=== PATIENT | female | born 1975 | race Caucasian/White ===

== ENCOUNTER → 2016-05-18 | Outpatient (CLI) | payer OTHER ==
--- NOTE | 2016-05-18 14:00 | MRI ---
EXAM DESCRIPTION: MRI right foot CLINICAL HISTORY: Toe pain. Sesamoiditis. COMPARISON: None. TECHNIQUE: Multi planar, multi sequence MRI evaluation of the right foot FINDINGS: Normal appearance of the medial and lateral sesamoids. No osteochondral lesion metatarsophalangeal joint of the great toe. Minimal joint fluid without synovitis or intra-articular body No osteochondral lesion 2nd through 5th metatarsophalangeal joints or interphalangeal. A pin traverses the interphalangeal joints of the 2nd toe. No advanced interphalangeal osteoarthritis No tenosynovitis. Intrinsic muscles of the foot are normal IMPRESSION: Postsurgical change 2nd toe No MRI evidence of sesamoiditis Electronically signed by: Eagle Garcia MD 05/18/2016 13:57
== END ==
LOC: MRI 10:58
PROVIDERS: ATTEND Family Medicine
DX: M84.9 Disorder of continuity of bone, unspecified (principal); Z98.890 Other specified postprocedural states

== ENCOUNTER → 2016-07-29 | Outpatient (CLI) | payer OTHER ==
--- NOTE | 2016-07-30 07:10 | MRI ---
EXAM DESCRIPTION: Cervical Spine CLINICAL HISTORY: 41 years,Female,RADICULOPATHY COMPARISON: None TECHNIQUE: MRI performed multiple sequences of the cervical spine. FINDINGS: The signal in the cervical vertebral bodies are unremarkable. The cervical cord is normal signal and morphology. Surrounding soft tissues unremarkable. Dense and arch of C1: unremarkable. C2-3: There is minimal loss of disc height. There is mild annular disc bulge. Facets are unremarkable for age. No neural foraminal stenosis. No spinal canal stenosis. C3-4: There is mild loss of disc height. There is mild annular disc osteophyte complex. Facets are mildly hypertrophic. No neural foraminal stenosis. No spinal canal stenosis. C4-5: There is moderate loss of disc height. There is moderate disc ossify complex with uncovertebral osteophytes up to 4 mm in thickness on the right. Facets are mild hypertrophy. Mild to moderate bilateral neural from stenosis. No spinal canal stenosis. C5-6: There is loss of disc at. There is mild to moderate disc ossify complex. Facets are mildly hypertrophic. Mild left neural foraminal stenosis. No spinal canal stenosis. C6-7: There is moderate loss of disc height. There is disc ossify complex with uncovertebral osteophytes with the lateral measuring 3 mm in thickness. Facets are mildly hypertrophic. Minimal if any bilateral neural foraminal stenosis. No spinal canal stenosis. C7-T1:There is no significant loss of disc height. There is no disc bulge. Facets are mild hypertrophy. No neural foraminal stenosis. No spinal canal stenosis. IMPRESSION: There is some neuroforaminal stenosis worse and mild to moderate bilaterally at C4-5 and mild on the left at C5-6 and minimal if any bilateral at C6-7 due to disc ossify complexes with uncovertebral osteophytes. No spinal canal stenosis. C2-3 and C3-4 demonstrate only mild disc ossify complexes. And entire cervical spine demonstrates mostly mild facet arthropathy. Electronically signed by: Flaqutio Bernstein MD 07/30/2016 7:09 AM CDT
--- NOTE | 2016-07-30 08:59 | MRI ---
EXAM DESCRIPTION: MRI pelvis without contrast CLINICAL HISTORY: Pelvic pain. Radiculopathy COMPARISON: None. TECHNIQUE: Multiplanar, multisequence MR images of the pelvis FINDINGS: Patient has had a hysterectomy and apparently a right oophorectomy. Right ovary not seen. Abnormal left adnexa. There is a unilocular cystic lesion which is about 2.4 cm in greatest dimension. There are couple of other tiny follicles. Another rounded structure within the ovary/adnexa measures about 2.5 x 2.4 x 2.4 cm demonstrating heterogeneously primarily low signal on T2-weighted images and heterogeneous primarily high signal on T1-weighted images with some intermediate signal. The quality of the low signal is different than fat on T2 fat-saturated images and slightly different on STIR images. This may be blood degradation products. Possibility of fat No pelvic soft tissue mass lesion or adenopathy otherwise. No free fluid. Mildly thickened urinary bladder wall without filling defect. This is apparently mild muscular hypertrophy. No focal bony lesion. No osteochondral lesion of the hips. Physiologic joint fluid. No suspicion of labral tear No tendon or muscle abnormality around the pelvis No mass lesion or signal abnormality along the course of the lumbosacral plexus and proximal sciatic nerves included in the [id number] IMPRESSION: Abnormal left adnexa/ovary with a unilocular cyst, and a couple of tiny follicles. Another component in the ovary which is probably related to hemorrhage. Possibility of fat/dermoid although the imaging characteristics are different than the other fat in the pelvis. Recommend endovaginal pelvic sonogram characterization No diagnostic abnormality of the lumbosacral plexus and proximal sciatic nerves included in the [id number] Electronically signed by: Eagle Garcia MD 07/30/2016 8:58 AM CDT
== END | disposition home or self-care (01) ==
LOC: MRI 08:28
PROVIDERS: ATTEND Family Medicine
DX: M50.122 Cervical disc disorder at C5-C6 level with radiculopathy (principal); M51.16 Intervertebral disc disorders with radiculopathy, lumbar region; M79.0 Rheumatism, unspecified; M84.9 Disorder of continuity of bone, unspecified; N83.292 Other ovarian cyst, left side

== ENCOUNTER 2017-05-06 05:46 | Day surgery (SDC) | payer OTHER ==
--- NOTE | 2017-05-02 13:33 | HP ---
CHIEF COMPLAINT: Bilateral hand numbness. HISTORY OF PRESENT ILLNESS: Pauline is a 41-year-old female with a history both pain and numbness in the hands. She has had this going on for about two years and says that it is starting to wake her up on a nightly basis. She denies any radiation of pain and denies any neurologic symptoms proximal to the wrist except for occasional numbness on the ulnar border of the left hand. She has had this on a rare and mild occasion. She says the numbness in the other part of her hand causes her more dysfunction. She has had an EMG, but the EMG showed more of a cervical radiculopathy. From a clinical standpoint, it does appear as though she has carpal tunnel syndrome bilaterally. Because of that, she has been using braces and utilizing anti-inflammatories, but those are no longer given her relief. We have discussed options which would include injection versus surgical intervention. Because of the failure of conservative measures, she has requested operative intervention. After discussing the risks , benefits and alternatives to operative therapy, the patient has given informed consent. PAST SURGICAL HISTORY: 1. Cholecystectomy. 2. Hysterectomy. 3. Nasal septoplasty. 4. Right and left foot surgeries. MEDICATIONS: 1. Adderall. 2. Nifedipine. 3. Singulair. 4. Biotin. 5. Xyzal. 6. Potassium chloride. 7. Trintellix. 8. Sulfasalazine. ALLERGIES: CODEINE, HYDROCODONE, BETADINE, HIBICLENS. CODE STATUS: Full code. IMMUNIZATIONS: Up to date. SOCIAL HISTORY: The patient does not drink, smoke or use any illicit drugs. FAMILY HISTORY: None pertinent to today's complaint. REVIEW OF SYSTEMS: Negative except as indicated in the History of Present Illness. PHYSICAL EXAMINATION: VITAL SIGNS: Blood pressure 149/104. Pulse 93. Height 5'4". Weight 170. MENTAL STATUS: The patient is awake, alert, and is able to give a good history and participate in the physical. The patient is oriented to person, place and time. SKIN: Normal tone and turgor. MUSCULOSKELETAL: She has positive carpal compression test and positive Phalen' s tests bilaterally. She has intact sensation at this time at rest. Both hands are warm and well perfused. She does not appear to have any significant thenar or hypothenar atrophy. She has slightly positive Tinel's and does have positive Tinel's on the left cubital tunnel. ASSESSMENT: 1. Carpal tunnel syndrome. PLAN: Because of the clinical positivity of her carpal tunnel tests and despite her EMG, I think we are dealing more with a carpal tunnel syndrome rather than cervical radiculopathy. To that end, she has elected to undergo carpal tunnel release. We have discussed the risks, benefits, and alternatives to that and the patient has given informed consent. #[id number] [facility]
[2017-05-06] MEDS ORDERED: LACTATED RINGERS 1,000 ML ONE (05:49)
[2017-05-06] MEDS ORDERED: SODIUM CHL 0.9% 100ML MINI-BAG 100 ML IVPB ONE (05:49)
[2017-05-06] MEDS ORDERED: ceFAZolin SODIUM 1 GM VIAL ONE (05:49)
[2017-05-06] MEDS ORDERED: LIDOCAINE 1% 50 ML VIAL INJ ONE (06:46)
[2017-05-06] MEDS ORDERED: BUPIVACAINE 0.25% INJ 30 ML VIAL INJ ONE (06:46)
[2017-05-06] MEDS ORDERED: PROPOFOL 200 MG/20 ML VIAL IV ONE (07:00)
[2017-05-06] MEDS: VANCOMYCIN HCL INJ 1,000 MG VIAL IVPB ONE ×2 (07:17→07:20)
[2017-05-06] MEDS: ceFAZolin SODIUM 1 GM VIAL ONE ×2 (07:17→07:20)
[2017-05-06 07:59] VITALS: TEMP 98
[2017-05-06 08:27] VITALS: BP 127/84; O2SAT 100
--- NOTE | 2017-05-06 09:18 | OP ---
DATE OF PROCEDURE: 05/06/17 PREOPERATIVE DIAGNOSIS: 1. Carpal tunnel syndrome. POSTOPERATIVE DIAGNOSIS: 1. Carpal tunnel syndrome. PROCEDURE: 1. Carpal tunnel release. SURGEON: Isaiah Ibrahim MD. PHLEBOTOMIST PRN: Richie Haines CST, SA-C. ANESTHESIA: Local with sedation. COMPLICATIONS: None. FINDINGS: Thickening of the transverse carpal ligament. Otherwise, normal anatomy. INDICATION: Pauline has a history of both pain in the wrist as well as numbness. She has had symptoms going on for about 2 years and they have been getting progressively worse. Because of the ongoing symptoms, she has requested operative intervention. After discussing the risks, benefits and alternatives to operative therapy, the patient has given informed consent for carpal tunnel release. PROCEDURE: The patient was brought to the Operating Room and placed in the supine position. Sedation was administered and local anesthetic was injected into the operative area under sterile conditions. After the injection of anesthetic, the arm was sterilely prepped and draped. A longitudinal incision was made directly overlying the transverse carpal ligament and blunt dissection was carried down to the ligament. The transverse carpal ligament was sharply transected along its length and a [place] elevator was used to ensure complete release of the ligament. Once release had been confirmed, the wound was thoroughly irrigated and the wound was closed with Nylon suture. A sterile dressing was placed and the patient was taken to the Day Surgery Unit. POSTOPERATIVE INSTRUCTIONS: She will be utilizing the digits for range of motion and will followup with us in approximately one week. #[id number] [facility]
== END 2017-05-06 08:05 | disposition home or self-care (01) ==
LOC: AMB 05:46
PROVIDERS: ATTEND Orthopaedic Surgery
DX: G56.01 Carpal tunnel syndrome, right upper limb (principal); J45.909 Unspecified asthma, uncomplicated; Z88.8 Allergy status to other drugs, medicaments and biological substances; Z79.899 Other long term (current) drug therapy

== ENCOUNTER 2017-05-20 05:28 | Day surgery (SDC) | payer OTHER ==
[2017-05-20] MEDS ORDERED: LACTATED RINGERS 1,000 ML ONE (05:56)
[2017-05-20] MEDS ORDERED: ceFAZolin SODIUM 1 GM VIAL ONE ×2 (05:56→06:49)
[2017-05-20] MEDS ORDERED: SODIUM CHL 0.9% 100ML MINI-BAG 100 ML IVPB ONE (05:56)
[2017-05-20] MEDS ORDERED: BUPIVACAINE 0.25% INJ 30 ML VIAL INJ ONE (06:49)
[2017-05-20] MEDS ORDERED: VANCOMYCIN HCL INJ 1,000 MG VIAL IVPB ONE (06:49)
[2017-05-20] MEDS ORDERED: LIDOCAINE 1% 50 ML VIAL INJ ONE (06:49)
[2017-05-20] MEDS ORDERED: PROPOFOL 200 MG/20 ML VIAL IV ONE (07:00)
[2017-05-20] MEDS ORDERED: LIDOCAINE 1% 10 ML VIAL INJ ONE (07:00)
[2017-05-20 07:07] VITALS: O2SAT 97
[2017-05-20 08:51] VITALS: BP 128/72; TEMP 97.6
--- NOTE | 2017-05-20 10:59 | OP ---
DATE OF PROCEDURE: 05/20/17 PREOPERATIVE DIAGNOSIS: 1. Carpal tunnel syndrome, left . POSTOPERATIVE DIAGNOSIS: 1. Carpal tunnel syndrome, left. PROCEDURE: 1. Carpal tunnel release. SURGEON: Isaiah Ibrahim MD. BREAKER HAND: Richie Haines CST, SA-C. ANESTHESIA: Local with sedation. COMPLICATIONS: None. FINDINGS: Thickened transverse carpal ligament with narrowing of the median nerve across the carpal tunnel. INDICATION: Ms. Salvador has a long history of pain as well as sensory deficits. She requested operative intervention secondary to failure of conservative measures. After discussing the risks, benefits and alternatives to operative therapy, the patient has given informed consent for carpal tunnel release. PROCEDURE: The patient was brought to the Operating Room and placed in the supine position. Sedation was administered and local anesthetic was injected into the operative area under sterile conditions. After the injection of anesthetic, the arm was sterilely prepped and draped. A longitudinal incision was made directly overlying the transverse carpal ligament and blunt dissection was carried down to the ligament. The transverse carpal ligament was sharply transected along its length and a [place] elevator was used to ensure complete release of the ligament. Once release had been confirmed, the wound was thoroughly irrigated and the wound was closed with Nylon suture. A sterile dressing was placed and the patient was taken to the Day Surgery Unit. POSTOPERATIVE INSTRUCTIONS: The patient has been encouraged to do range of motion of the digits and will followup with us in two days. #[id number] [facility]
== END 2017-05-20 08:40 | disposition home or self-care (01) ==
LOC: AMB 05:28
PROVIDERS: ATTEND Orthopaedic Surgery
DX: G56.02 Carpal tunnel syndrome, left upper limb (principal); I10 Essential (primary) hypertension; J45.909 Unspecified asthma, uncomplicated; Z88.8 Allergy status to other drugs, medicaments and biological substances; Z79.899 Other long term (current) drug therapy
CPT/HCPCS: 01810; 64721; 87070; J0690; J3370; J3490; J7050; J7120

== ENCOUNTER 2017-07-27 05:48 | Day surgery (SDC) | payer OTHER ==
--- NOTE | 2017-07-22 09:11 | HP ---
CHIEF COMPLAINT: Left hand numbness and aching. HISTORY OF PRESENT ILLNESS: Pauline is a 41-year-old female with a history of pain and numbness on the ulnar border of the hand. She has had this going on for several years and it has been getting progressively worse. She has had EMG evidence of ulnar nerve dysfunction. Because of the ongoing symptoms, she has requested operative intervention. After discussing the risks, benefits and alternatives to that, the patient has given informed consent for ulnar nerve transposition. PAST SURGICAL HISTORY: 1. Cholecystectomy. 2. Hysterectomy. 3. Septoplasty. 4. Bilateral foot surgery. 5. Bilateral carpal tunnel release. MEDICATIONS: 1. Adderall. 2. Nifedipine. 3. Singulair. 4. Biotin. 5. Xyzal. 6. Potassium. 7. Trintellix. 8. Sulfasalazine. ALLERGIES: CODEINE, HYDROCODONE, BETADINE, HIBICLENS. CODE STATUS: Full code. IMMUNIZATIONS: Up to date. SOCIAL HISTORY: The patient does not drink, smoke or use any illicit drugs. FAMILY HISTORY: None pertinent to today's complaint. REVIEW OF SYSTEMS: Negative except as indicated in the History of Present Illness. PHYSICAL EXAMINATION: VITAL SIGNS: Blood pressure 125/75. Pulse 88. Height 5'4". Weight 170 pounds. MENTAL STATUS: The patient is awake, alert, and is able to give a good history and participate in the physical. The patient is oriented to person, place and time. SKIN: Normal tone and turgor. HEENT: Normocephalic, atraumatic. Pupils equal, round and reactive. Mucosal membranes are moist. NECK: Normal range of motion. No thyromegaly, no lymphadenopathy. CHEST: Normal respiratory excursion. CARDIAC: Regular rate and rhythm. No murmurs, rubs or gallops. MUSCULOSKELETAL: She has obvious hypothenar atrophy relative to the right side. She has weakness in finger abduction. She has subjective numbness at rest. She has positive Tinel's at the elbow. The entire extremity is warm and well perfused. She maintains full range of motion in the shoulder, elbow, wrist and digits. ASSESSMENT: 1. Ulnar nerve compression. PLAN: The plan at this point is for ulnar nerve transposition. We have discussed the risks, benefits, and alternatives to that and the patient has given informed consent. #[id number] [facility]
[2017-07-27] MEDS ORDERED: SODIUM CHL 0.9% 100ML MINI-BAG 100 ML IVPB ONE (06:11)
[2017-07-27] MEDS ORDERED: fentaNYL CITRATE INJ 50 MCG/ML AMP ONE (06:18)
[2017-07-27] MEDS ORDERED: LIDOCAINE 2 % GEL 5 ML TUBE TOP ONE (06:18)
[2017-07-27] MEDS ORDERED: LIDOCAINE 1% W/ EPINEPHRINE 20 ML VIAL INJ ONE (06:46)
[2017-07-27] MEDS ORDERED: SODIUM CHLORIDE 0.9% 250ML 250 ML ONE (06:49)
[2017-07-27] MEDS: VANCOMYCIN HCL INJ 1,000 MG VIAL IVPB ONE ×2 (06:55→08:50)
[2017-07-27] MEDS: ceFAZolin SODIUM 1 GM VIAL ONE ×2 (07:15→08:50)
[2017-07-27] MEDS: BUPIVACAINE 0.25% W/EPI 50 ML VIAL INJ ONE (07:35)
[2017-07-27] MEDS ORDERED: ACETAMINOPHEN IV 1000MG 100 ML ONE ×2 (08:52→08:53)
[2017-07-27] MEDS ORDERED: PROPOFOL 200 MG/20 ML VIAL IV ONE (10:00)
[2017-07-27] MEDS ORDERED: ONDANSETRON INJ 4 MG/2 ML VIAL IV ONE (10:00)
[2017-07-27] MEDS ORDERED: LIDOCAINE 1% 10 ML VIAL INJ ONE (10:00)
[2017-07-27] MEDS ORDERED: DEXAMETHASONE INJ 10 MG/ML VIAL IV ONE (10:00)
[2017-07-27 10:03] VITALS: TEMP 97.5
[2017-07-27] MEDS: MORPHINE SULFATE INJ 10 MG/ML VIAL ONE (10:10)
[2017-07-27] MEDS: LACTATED RINGERS 1,000 ML ONE (10:36)
[2017-07-27] MEDS: ONDANSETRON ODT 8 MG TAB ONE (10:45)
--- NOTE | 2017-07-27 10:47 | OP ---
DATE OF PROCEDURE: 07/27/17 PREOPERATIVE DIAGNOSIS: 1. Ulnar nerve entrapment. POSTOPERATIVE DIAGNOSIS: 1. Ulnar nerve entrapment. PROCEDURE: 1. Ulnar nerve transposition. SURGEON: Isaiah Ibrahim MD. WASHHOUSE WORKER: Richie Haines CST, SA-C. ANESTHESIA: General. COMPLICATIONS: None. FINDINGS: Subluxation of the ulnar nerve with flattening across the cubital tunnel. INDICATION: Ms. Slavador has a history of both pain and paresthesias in the ulnar aspect of the arm. She has had this going on for quite a while and has developed some evidence of atrophy. Because of the duration of symptoms and the development of atrophy, we did talk about the risks, benefits and alternatives to operative therapy. After discussing those, informed consent was obtained. PROCEDURE: The patient was brought to the Operating Room and placed in the supine position. General anesthesia was induced and the patient's arm was sterilely prepped and draped. An incision was made midway between the olecranon and the medial epicondyle. Dissection was carried down to the fascial layer and the nerve was identified proximally. Vessel loop was passed around the nerve. Following passing of vessel loop, it was freed from proximal to distal. Across the cubital tunnel, it was noted that there was subluxation of the median nerve and pressure directly over the medial epicondyle. Once the nerve was fully freed, the tissues overlying the medial epicondyle were elevated. The wound was thoroughly irrigated and the median nerve was held in a protected position while the fascial layer was sutured to the medial epicondyle. After confirmation of the nerve being free of the sutured area, the wound was again irrigated and closed with combination of running and interrupted subcuticular stitches. Sterile dressings were placed. The patient was placed in a sling with a posterior splint, awoken from anesthesia and taken to Recovery. POSTOPERATIVE INSTRUCTIONS: The patient has been encouraged to do range of motion of the digits. She will keep the hand elevated and will followup with us in two days. #[id number] [facility]ENTER[facility]aciel[facility]
[2017-07-27] MEDS: IBUPROFEN 200 MG TAB ONE (11:00)
[2017-07-27] MEDS: traMADol HCL 50 MG TAB ONE (11:00)
[2017-07-27 12:17] VITALS: BP 138/80; O2SAT 97
== END 2017-07-27 11:40 | disposition home or self-care (01) ==
LOC: AMB 05:48
PROVIDERS: ATTEND Orthopaedic Surgery
DX: G56.22 Lesion of ulnar nerve, left upper limb (principal); M06.9 Rheumatoid arthritis, unspecified; Z88.5 Allergy status to narcotic agent; Z88.8 Allergy status to other drugs, medicaments and biological substances; Z79.899 Other long term (current) drug therapy
CPT/HCPCS: 01710; 64718; 87070; J0690; J1100; J2270; J2405; J3010; J3370; J3490; J7050; J7120

== ENCOUNTER → 2017-12-27 | Outpatient (CLI) | payer OTHER ==
--- NOTE | 2017-12-27 15:48 | MRI ---
EXAM DESCRIPTION: Shoulder,Left: Magnetic Resonance Imaging. CLINICAL HISTORY: LEFT SHOULDER PAIN COMPARISON: None. TECHNIQUE: Multiplanar, high-field MRI, multiple sequences, without contrast, left shoulder was in internal rotation during the scan. FINDINGS: Minimal fluid signal in the bursal surface of the posterior musculotendinous junction of the supraspinatus. Abutting the confluence with the infraspinatus tendon. Minimal fluid in the subacromial-subdeltoid bursa. Intermediate signal in the distal infraspinatus tendon. Normal signal in the remaining tendons of the rotator cuff. No muscle atrophy. No significant lesions in the humeral head. Small subchondral cysts on the opposing facets of the AC joint. Minimal mass effect on the superior distal supraspinatus muscle. Minimal downsloping of the lateral acromion. Type II curvature of the lateral acromion. Coracoid ligaments are intact. Minimal fluid in the subcoracoid bursa. Subchondral edema in the posterior superior aspect of the glenoid labrum. Minimal fluid signal in the superior labrum abutting the posterior bicipital labral anchor. Question of a subtle labral foramen anterior and superior. Superior glenohumeral ligament not well seen. Long head biceps tendon within the bicipital groove.. IMPRESSION: 1. Tendinitis at the posterior aspect of the bursal surface of the musculotendinous junction of the supraspinatus, abutting the confluence with the infraspinatus. Degeneration of the distal infraspinatus tendon. No muscle atrophy. Minimal edema in the subacromial-subdeltoid bursa. 2. Minimal subcoracoid bursitis. Minimal to moderate arthrosis of the AC joint. Inferior joint capsule is exhibiting minimal mass effect on the distal muscle fibers of the supraspinatus. 3. Small osteochondral lesion in the posterior aspect of the superior glenoid. Small focal tear in the superior labrum abutting the posterior bicipital labral anchor. Possible sublabral foramen. Superior glenohumeral ligament not well seen. Consider MR arthrography of the left shoulder for better definition of the glenohumeral joint and the glenoid labrum. Electronically signed by: Richie Masterson MD 12/27/2017 3:47 PM CDT
--- NOTE | 2017-12-28 13:38 | MAM ---
EXAM DESCRIPTION: 3D Screening BILATERAL : Digital Mammography. CLINICAL HISTORY: 42 years Female SCREEN . No complaints. No personal history or family history of breast cancer. Childbirth. Hysterectomy. No HRT. Lifetime risk of developing breast cancer (Tyrer-Cuzick model) is 9.8 %. COMPARISON: 2-D digital screening bilateral study 12/19/2008.. No prior reports available. TECHNIQUE: Bilateral CC and MLO projection full-field images, Digital tomosynthesis mammographic technique. Bilateral digital 2-D full-field MLO images. CAD not utilized. FINDINGS: The breast parenchymal density pattern is: Heterogeneously dense breast tissue, which may obscure small masses. No skin thickening or nipple retraction. Focal asymmetry in the midline into the third of the left breast at the 600 clock position approximately 8 cm from the nipple. Not associated with calcifications. Bilateral axillary lymph nodes. No new focal, stellate mass or density, focal asymmetry , and no suspicious microcalcifications right breast are Stable mammograms compared to prior study. IMPRESSION: BI-RADS CATEGORY: 0 - INCOMPLETE- Need additional imaging evaluation. FOLLOW-UP: Recall for additional imaging: Digital tomosynthesis left breast full-field imaging and spot compression. Targeted left breast ultrasound if indicated by diagnostic images.. Written communication concerning the IMPRESSION and Follow-up, will be mailed to the patient and referring health care provider. Electronically signed by: Richie Masterson MD 12/28/2017 1:36 PM CDT
== END ==
LOC: MRI 11:58
PROVIDERS: ATTEND Family Medicine
DX: Z12.31 Encounter for screening mammogram for malignant neoplasm of breast (principal); M75.52 Bursitis of left shoulder; M75.82 Other shoulder lesions, left shoulder; M25.512 Pain in left shoulder

== ENCOUNTER → 2018-01-05 | Outpatient (CLI) | payer OTHER ==
--- NOTE | 2018-01-05 13:47 | US ---
EXAM DESCRIPTION: Pelvic,Non-OB: Ultrasound. CLINICAL HISTORY: OVARIAN CYST. Previous hysterectomy and right oophorectomy. COMPARISON: MRI pelvis 07/29/2016. Diagnostic digital breast tomosynthesis left and targeted left breast ultrasound today. TECHNIQUE: Transcutaneous scanning through the urine filled bladder. Endovaginal scanning. Small-scale and Doppler modes. FINDINGS: Uterus surgically removed. Cul-de-sac contains no fluid. Right ovary surgically removed. Left ovary 4.2 x 2.9 x 2.7 cm. Normal Vascularity Doppler. 2 cysts, anechoic. One cyst measures 2.1 x 1.5 x 2.0 cm. Largest cyst measures 3.4 x 3.1 x 2.5 cm. Well-defined campa with no calcification or vascularity. No adnexal mass or free fluid. IMPRESSION: Left ovary is enlarged with 2 cysts, maximum diameter 3.4 cm and 2.0 cm. The cysts appear simple. Solid mass not seen. One year ultrasound follow-up imaging recommended per [facility] Best Practice recommendations for simple cysts and patient greater than one year postmenopause. Please see below.* *Recommendations for f/u of ovarian anechoic simple cyst, simple cyst with single thin <3 mm septation, or focal calcification in wall of cyst (1): Pre-menopause: <= 5 cm No follow-up imaging recommended >5 cm - <=7 cm US f/u annually >7 cm Consider MR w/IVC or surgical evaluation Post-menopause (>=1 year from last menstrual period): <=3 cm No follow-up imaging recommended >3 cm - <=7 cm US f/u annually >7 cm Consider MR w/IVC or surgical evaluation (1) Recommendations based on 2010 SRU Consensus Conference Statement on the Management of Asymptomatic Ovarian and Other Adnexal Cysts Imaged at US: Radiology. 2009;256(3):317-72 Electronically signed by: Richie Masterson MD 01/05/2018 1:46 PM CDT
--- NOTE | 2018-01-05 13:53 | US ---
EXAM DESCRIPTION: Breast,Left: Ultrasound CLINICAL HISTORY: 42 yearsFemaleABNORMAL MAMMO COMPARISON: Digital diagnostic mammogram left breast today. Bilateral screening digital breast tomosynthesis 12/27/2017. TECHNIQUE: Transcutaneous scanning of the left breast utilizing dumont-scale and Doppler modes. Scanning performed by the victim witness administrator and observation by Dr. Masterson. FINDINGS: Heterogeneous fibroglandular and fatty echotexture mixed. No distinct solid mass or cyst. No parenchymal edema or large calcifications. No overlying skin changes. No abnormal vascularity. IMPRESSION: 1. Bi-Rads Category 2: Benign. 2. Please refer to diagnostic left breast digital tomosynthesis and report on this visit. The FINDINGS and the FOLLOW-UP plan were reviewed in person with the patient after the examination. Written communication explaining the IMPRESSION and FOLLOW-UP will be mailed to the patient and referring care provider. Electronically signed by: Richie Masterson MD 01/05/2018 1:51 PM CDT
--- NOTE | 2018-01-05 14:21 | MAM ---
EXAM DESCRIPTION: 3D Diagnostic, Left: Digital Mammography CLINICAL HISTORY: 42 yearsFemaleABNORMAL MAMMOGRAM . Focal asymmetry middle third left breast.. COMPARISON: Bilateral screening digital breast tomosynthesis 01/05/2018.. Ultrasound left breast following this examination.. TECHNIQUE: Left LM projection full-field images, digital mammographic tomosynthesis technique. Spot magnification digital left CC and MLO projections. CAD not utilized. FINDINGS: Left breast parenchymal density pattern is: Heterogeneously dense breast tissue, which may obscure small masses. No skin thickening or nipple retraction densest fibroglandular elements within the mid third of the breast. No new focal, stellate mass or density, focal asymmetry , and no suspicious microcalcifications in the region of interest. ULTRASOUND: Scanning the middle third of the left breast with emphasis on the 1200 clock position, 7 cm from the nipple. Heterogeneous fibroglandular and fatty echotexture mixed. No distinct solid mass or cyst. No parenchymal edema or large calcifications. No overlying skin changes. No abnormal vascularity. IMPRESSION: Benign exam. BIRAD CATEGORY: 2 BENIGN FINDINGS. RECOMMENDATIONS: FOLLOW UP: Return to routine digital bilateral screening, one year interval from December 2017. Written communication explaining the IMPRESSION and follow-up, will be mailed to the patient and referring health care provider. According to the [employer], yearly mammograms are recommended starting at age 40 and continuing as long as a woman is in good health. Any breast change noted on a breast self-exam should be reported promptly to the patient's healthcare provider. Breast MRI is recommended for women with an approximately 20-25% or greater lifetime risk of breast cancer, including women with a strong family history of breast or ovarian cancer and women who have been treated for Hodgkin's disease. A negative mammographic report should not delay tissue diagnosis in patients with significant clinical history or physical findings. Extremely dense breast tissue limits the sensitivity of digital mammography. Electronically signed by: Richie Masterson MD 01/05/2018 2:19 PM CDT
== END ==
LOC: MAMMO 08:30
PROVIDERS: ATTEND Family Medicine
DX: R92.8 Other abnormal and inconclusive findings on diagnostic imaging of breast (principal); N83.202 Unspecified ovarian cyst, left side
CPT/HCPCS: 76641; 76856; 77065; G0279

== ENCOUNTER 2018-01-31 06:16 | Day surgery (SDC) | payer OTHER ==
--- NOTE | 2018-01-25 08:28 | HP ---
CHIEF COMPLAINT: Left shoulder pain. HISTORY OF PRESENT ILLNESS: Pauline is a 41-year-old female with a history of pain in the shoulder that she describes as being both on the lateral and superior aspects. She has had this pain for several months and has had injections in the past. She has had subacromial injection which has given partial relief. She has attempted physical therapy, however has failed to get full relief with either physical therapy or injection. She says the pain is on a very frequent basis, does not radiate and she no longer has symptoms associated with her carpal tunnel syndrome or cubital tunnel syndrome. PAST SURGICAL HISTORY: 1. Cholecystectomy. 2. Hysterectomy. 3. Septoplasty. 4. Bilateral foot surgery. 5. Bilateral carpal tunnel release. 6. Ulnar nerve transposition. MEDICATIONS: 1. Adderall. 2. Nifedipine. 3. Singulair. 4. Biotin. 5. Xyzal. 6. Potassium. 7. Trintellix. 8. Sulfasalazine. ALLERGIES: CODEINE, HYDROCODONE, BETADINE, HIBICLENS. CODE STATUS: Full code. IMMUNIZATIONS: Up to date. FAMILY HISTORY: None pertinent to today's complaint. SOCIAL HISTORY: The patient does not drink, smoke or use any illicit drugs. REVIEW OF SYSTEMS: Negative except as indicated in the History of Present Illness. PHYSICAL EXAMINATION: VITAL SIGNS: Blood pressure 120/70. Pulse 81. Height 5'4". Weight 170 pounds. MENTAL STATUS: The patient is awake, alert, and is able to give a good history and participate in the physical. The patient is oriented to person, place and time. SKIN: Normal tone and turgor. MUSCULOSKELETAL: She has full abduction of the shoulder, but it is very tender beyond about 90 degrees. She has pretty severe pain with cross-chest adduction. She has full jewelry bench molder strength. Sensation is intact. The extremity is warm and well perfused. She has pain with internal and external rotation during forward flexion. She has internal rotation to about L2. She has severe tenderness over the acromioclavicular joint and moderate tenderness in the subacromial space. IMAGING: X-rays show no acute bony abnormality. MRI does demonstrate tendinosis of the rotator cuff, however, there does seem to be arthritic changes at the acromioclavicular joint with a mass effect from the undersurface osteophytes on the rotator cuff. ASSESSMENT: 1. Impingement syndrome. PLAN: I did a local injection at the acromioclavicular joint. This gave her excellent relief for several days. It was complete relief with just that. She has had physical therapy as well as previous steroid injection. Given the fact that we were able to localize her pain and her failure of conservative measures , she has requested operative intervention. We have discussed the risks, benefits, and alternatives to subacromial decompression and distal clavicle resection, she has given informed consent for that and we will proceed with that. #[id number] [facility]
[~2018-01-31 06:16] MED LIST: LACTATED RINGERS 1,000 ML ONE; SODIUM CHL 0.9% 100ML MINI-BAG 100 ML IVPB ONE; ceFAZolin SODIUM 1 GM VIAL ONE
[2018-01-31] MEDS ORDERED: ACETAMINOPHEN IV 1000MG 100 ML ONE (06:29)
[2018-01-31] MEDS ORDERED: LACTATED RINGERS 1,000 ML BAG IV ONE (06:30)
[2018-01-31] MEDS ORDERED: ROCURONIUM BROMIDE 10 MG/ML VIAL ONE (06:30)
[2018-01-31] MEDS ORDERED: MIDAZOLAM INJ 5 MG/5 ML VIAL ONE (06:30)
[2018-01-31] MEDS ORDERED: fentaNYL CITRATE INJ 50 MCG/ML AMP ONE (06:30)
[2018-01-31] MEDS ORDERED: BUPIVACAINE 0.5% 30 ML VIAL INJ ONE (06:56)
[2018-01-31] MEDS ORDERED: BUPIVACAINE LIPOSOME 13.3 MG/ML VIAL INJ ONE (06:56)
[2018-01-31] MEDS: ceFAZolin SODIUM 1 GM VIAL ONE ×2 (07:46→07:55)
[2018-01-31] MEDS: VANCOMYCIN HCL INJ 1,000 MG VIAL IVPB ONE ×2 (07:46→07:55)
[2018-01-31] MEDS ORDERED: SUGAMMADEX SODIUM 200 MG/2 ML VIAL IV ONE (07:55)
[2018-01-31 09:05] VITALS: TEMP 97.2
[2018-01-31] MEDS ORDERED: HYDROmorphone HCL INJ 2 MG/ML VIAL ONE (09:41)
[2018-01-31] MEDS ORDERED: LIDOCAINE 1% 10 ML VIAL INJ ONE (10:00)
[2018-01-31] MEDS ORDERED: raNITIdine HCL INJ 25 MG/ML VIAL IV ONE (10:00)
[2018-01-31] MEDS ORDERED: PROPOFOL 200 MG/20 ML VIAL IV ONE (10:00)
[2018-01-31] MEDS ORDERED: diphenhydrAMINE HCL 50 MG/ML VIAL IV ONE (10:00)
[2018-01-31] MEDS ORDERED: ePHEDrine SULF 50 MG/ML IV ONE (10:00)
[2018-01-31] MEDS ORDERED: METOCLOPRAMIDE HCL INJ 10 MG/2 ML VIAL IV ONE (10:00)
[2018-01-31] MEDS ORDERED: DEXAMETHASONE INJ 10 MG/ML VIAL IV ONE (10:00)
[2018-01-31 10:59] VITALS: BP 129/85; O2SAT 98
--- NOTE | 2018-02-01 14:23 | OP ---
DATE OF PROCEDURE: 01/31/18 PREOPERATIVE DIAGNOSIS: 1. Impingement syndrome. POSTOPERATIVE DIAGNOSIS: 1. Impingement syndrome. PROCEDURE: 1. Subacromial decompression. 2. Distal clavicle resection. SURGEON: Isaiah Ibrahim MD. HEEL SEAT FLAP STAPLER: Richie Haines CST, SA-C. ANESTHESIA: General anesthesia. COMPLICATIONS: None. FINDINGS: 1. Hypertrophic bursitis. 2. 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 INDICATION: Pauline has a history of pain in the acromioclavicular joint. She has had pain associated with this and has had difficulty getting relief. She has failed conservative measures and as such, she has requested operative intervention. After discussing the risks, benefits and alternatives to subacromial decompression and distal clavicle resection, the patient gave informed consent. PROCEDURE: The patient was brought to the Operating Room and placed in the supine position. General anesthesia was induced and the patient was transitioned into the beach chair position. The arm and shoulder were then sterilely prepped and draped. An incision was made at the lateral border of the acromion and full thickness skin flaps were developed. The deltoid was identified and split between the anterior and middle heads. The subacromial bursa was removed and the entire rotator cuff was identified. There were no defects in the rotator cuff. That part of the wound was irrigated and attention was then focused on the acromioclavicular joint. Full thickness periosteal flaps were developed at the acromioclavicular joint. Following identification of the acromioclavicular joint, about the distal 7 to 10 mm was resected. Care was taken to ensure complete removal of all bone debris. The wound was irrigated and the periosteal flap was reapproximated. Following that , the wound was again irrigated and closure was performed with a combination of running and interrupted subcuticular stitches. Sterile dressings were placed. The patient was placed in a sling, awoken from anesthesia and taken to Recovery. POSTOPERATIVE PLAN: The patient will be limited with regards to range of motion and will followup with us in about two days. #[id number] [facility]ITALGraciel[facility]
== END 2018-01-31 10:35 | disposition home or self-care (01) ==
LOC: AMB 06:16
PROVIDERS: ATTEND Orthopaedic Surgery
DX: M75.42 Impingement syndrome of left shoulder (principal); M19.012 Primary osteoarthritis, left shoulder; E66.9 Obesity, unspecified; J45.909 Unspecified asthma, uncomplicated; Z88.5 Allergy status to narcotic agent; Z88.8 Allergy status to other drugs, medicaments and biological substances; Z79.899 Other long term (current) drug therapy
CPT/HCPCS: 01630; 23120; 23130; 87070; J0690; J1100; J1170; J1200; J2250; J2765; J2780; J3010; J3370; J3490; J7050; J7120

== ENCOUNTER → 2018-11-24 | Outpatient (CLI) | payer OTHER | LOC: LAB.O 10:13 | PROVIDERS: ATTEND Orthopaedic Surgery | DX: Z01.818 Encounter for other preprocedural examination (principal) ==

== ENCOUNTER 2018-12-05 05:35 | Day surgery (SDC) | payer OTHER ==
--- NOTE | 2018-12-01 10:56 | HP ---
CHIEF COMPLAINT: Right foot pain. HISTORY OF PRESENT ILLNESS: Pauline is a 43-year-old female with a history of fusion of multiple joints of the right foot. Pauline successfully fused those joints and at this time is having symptoms of pain over the area. She denies any recent trauma, radiation of pain or neurologic symptoms. X-rays revealed broken hardware and because she has successfully fused these joints, I think it is reasonable for the hardware to come out. We have discussed risks, benefits and alternatives to that and she has given informed consent for hardware removal. PAST SURGICAL HISTORY: 1. Carpal tunnel release x2. 2. Ulnar nerve transposition. 3. Rotator cuff repair. 4. Bunionectomy. 5. Cyst removal. MEDICATIONS: 1. Xyzal. 2. Singulair. 3. Potassium. ALLERGIES: BETADINE. CODE STATUS: Full code. IMMUNIZATIONS: Up to date. SOCIAL HISTORY: The patient does not drink, smoke or use any recreational drugs. FAMILY HISTORY: None pertinent to today's complaint. REVIEW OF SYSTEMS: Negative except as indicated in the History of Present Illness. PHYSICAL EXAMINATION: VITAL SIGNS: Blood pressure 152/98. Pulse 67. Height 5'3". Weight 160 pounds. MENTAL STATUS: The patient is awake, alert, and is able to give a good history and participate in the physical. The patient is oriented to person, place and time. SKIN: Normal tone and turgor. MUSCULOSKELETAL: She has a well-healed wound over the dorsum of the foot. She has intact sensation throughout the extremity and it is warm and well perfused. She has palpable hardware directly beneath the incision and palpation of that causes discomfort. There is no erythema and no fluid accumulation. IMAGING: X-rays show broken hardware. ASSESSMENT: 1. Symptomatic hardware. PLAN: The plan at this point is for excision of the hardware. We have discussed the risks, benefits, and alternatives to that and the patient has given informed consent. [facility][id number] [facility]
[2018-12-05] MEDS ORDERED: SODIUM CHLORIDE 0.9% 50 ML VIAL ONE (07:00)
[2018-12-05] MEDS ORDERED: raNITIdine HCL INJ 25 MG/ML VIAL ONE (07:00)
[2018-12-05] MEDS ORDERED: LIDOCAINE 1% 10 ML VIAL INJ ONE (07:00)
[2018-12-05] MEDS ORDERED: DEXAMETHASONE INJ 10 MG/ML VIAL ONE (07:00)
[2018-12-05] MEDS ORDERED: PROPOFOL 200 MG/20 ML VIAL IV ONE (07:00)
[2018-12-05] MEDS ORDERED: SODIUM CHL 0.9% 100ML MINI-BAG 100 ML IVPB ONE (09:03)
[2018-12-05] MEDS ORDERED: LACTATED RINGERS 1,000 ML ONE (09:03)
[2018-12-05] MEDS ORDERED: ceFAZolin SODIUM 1 GM VIAL ONE ×2 (09:04→09:27)
[2018-12-05] MEDS ORDERED: BUPIVACAINE LIPOSOME 13.3 MG/ML VIAL INJ ONE (09:27)
[2018-12-05] MEDS ORDERED: VANCOMYCIN HCL INJ 1,000 MG VIAL IVPB ONE (09:27)
[2018-12-05] MEDS ORDERED: MIDAZOLAM INJ 5 MG/5 ML VIAL ONE (10:21)
[2018-12-05] MEDS ORDERED: HYDROmorphone HCL INJ 2 MG/ML VIAL ONE (10:21)
[2018-12-05] MEDS ORDERED: KETAMINE HCL 50 MG/ML SYG IV ONE (10:21)
[2018-12-05] MEDS: BUPIVACAINE 0.5% 30 ML VIAL INJ ONE ×2 (10:45→11:20)
[2018-12-05] MEDS ORDERED: MEPERIDINE HCL 50 MG/ML VIAL ONE (12:04)
[2018-12-05 13:21] VITALS: BP 120/82; TEMP 97.8; O2SAT 97
--- NOTE | 2018-12-05 15:05 | RAD ---
EXAM DESCRIPTION: Fluoroscopy Up to 1Hr CLINICAL HISTORY: 43 years Female, hardware REMOVAL COMPARISON: Foot radiograph 07/07/2018. FINDINGS/IMPRESSION: Two views of the right midfoot demonstrate interval removal the right first metatarsal base Nitinol tyron with residual fractured stable pieces remaining in place (as seen on the frontal view). Electronically signed by: Arnulfo Cooper DO 12/05/2018 3:03 PM CDT
--- NOTE | 2018-12-08 09:14 | OP ---
DATE OF PROCEDURE: 12/05/18 PREOPERATIVE DIAGNOSIS: 1. Symptomatic hardware of the right hip. POSTOPERATIVE DIAGNOSIS: 1. Symptomatic hardware of the right hip. PROCEDURE: 1. Removal of hardware. SURGEON: Isaiah Ibrahim MD. CLIENT SUPPORT MANAGER: Richie Haines CST, SA-C. ANESTHESIA: Local with sedation. COMPLICATIONS: None. FINDINGS: Prominent tyron from previous fusion. INDICATION FOR PROCEDURE: Pauline has a history of a midfoot fusion. The fusion itself was successful, however, two of the tyron used in that fusion broke. They became symptomatic as they were irritating the overlying skin. Because of that, she requested removal. After discussing the risks, benefits and alternatives to that, she has given informed consent. PROCEDURE: The patient was brought to the Operating Room and placed in supine position. Anesthesia was induced and the area of the dissection was infiltrated with local anesthetic. Incision was made in line with the previous scar and blunt dissection was carried down to the tyron, which were easily visualized. Following that, both tyron were removed. Part of the staple which was broken off was completely buried in bone and therefore was left in place. I had talked to Pauline about that being the likely case prior to surgery. The wound was very thoroughly irrigated and closed with Nylon suture. Sterile dressings were placed. The patient was taken back to the Day Surgery Unit. POSTOPERATIVE PLAN: She will be weightbearing as tolerated on postoperative day 0. #[id number] MTDD
== END 2018-12-05 12:45 | disposition home or self-care (01) ==
LOC: AMB 05:35
PROVIDERS: ATTEND Orthopaedic Surgery
DX: T84.84XA Pain due to internal orthopedic prosthetic devices, implants and grafts, initial encounter (principal); T84.293A Other mechanical complication of internal fixation device of bones of foot and toes, initial encounter; Z88.5 Allergy status to narcotic agent; Z88.8 Allergy status to other drugs, medicaments and biological substances; Z79.899 Other long term (current) drug therapy
CPT/HCPCS: 01480; 20680; 36415; 76000; 80048; 85025; J0690; J1170; J2175; J2250; J3370; J3490; J7050; J7120

== ENCOUNTER → 2019-02-19 | Outpatient (CLI) | payer OTHER ==
--- NOTE | 2019-02-19 20:28 | MRI ---
EXAM DESCRIPTION: Lumbar Spine w/o Contrast : Magnetic Resonance Imaging. CLINICAL HISTORY: INTERVERTEBRAL DISC DISORDER WITH RADICULOPATHY COMPARISON: LUMBAR TECHNIQUE: Multiplanar, multiple standard sequences, non contrast MRI, lumbar spine. FINDINGS: L5-S1: The disc is well visualized on axial T2 series 501, image 3. Desiccation of the disc with minimal disc space loss. Tiny posterior bulge posterior elements are unremarkable. Canal and foramina are patent. S1 is transitional and partially lumbarized. Rudimentary S1-S2 disc. Incomplete articulation of the right sacral ala with the remainder of the sacrum and the right iliac bone. Hyperintense, circumscribed, T1 and T2 and inversion recovery atypical hemangioma in the right side of the L5 vertebral body more inhomogeneous on the T1 sequence. L4-L5: Normal signal in the disc with disc space maintained. Minimal anterior reactive changes. No posterior disc bulge. Effusion in the right facet joint with bilateral ligament thickening. Canal is patent bilateral foramina are patent. L3-L4: Normal signal in the disc space maintained. Posterior elements unremarkable. Canal and foramina are patent. Same at L2-L3. Same at L1-L2. Focal circumscribed hyperintense T1 and T2 hemangioma abutting the inferior L2 endplate. Conus terminates at the lower L1 level. T12-L1: Normal signal in the disc and disc space maintained. Posterior elements are unremarkable. Canal and foramina are patent. Inhomogeneous low signal in the superior aspect of the posterior L1 vertebral body. Mild rim of peripheral hyperintense T1 and T2 signal. No edema signal on inversion recovery. Probably a degenerating hemangioma. No scoliosis. Paravertebral soft tissues negative.. Distal cord normal signal and caliber. Inhomogeneous marrow signal in the remaining vertebral bodies and the posterior elements. Vertebral bodies are not compressed at any level. No abnormal marrow edema. IMPRESSION: 1. S1 sacral segment is transitional and partially lumbarized with asymmetric articulation with the iliac bones and remainder of the sacrum bilaterally. Rudimentary S1-S2 disc. Asymmetric lumbosacral anomalies can be a source of abnormal biomechanics and low back pain. 2. Desiccation of the L5-S1 disc with tiny posterior bulge. Canal and foramina are patent. 3. Remaining discs and disc spaces with no evidence of significant disc bulging, disc herniation, or canal stenosis. No significant foraminal narrowing or stenosis. Minimal facet arthrosis and ligament thickening. No significant spondylolisthesis or compression type vertebral body fractures. 4. Several hemangiomas are present, typical and atypical. Inhomogeneous marrow signal suggesting early marrow reconversion. Electronically signed by: Richie Masterson MD 02/19/2019 8:26 PM [facility]
--- NOTE | 2019-02-20 08:01 | MRI ---
EXAM DESCRIPTION: Cervical Spine: MRI. CLINICAL HISTORY: 43 years Female CERVICAL DISC DISORDER WITH RADICULOPATHY COMPARISON: MRI scan cervical spine without contrast 29 July 2016. TECHNIQUE: Multiplanar, high-field MRI, multiple sequences, non-contrast Cervical spine. FINDINGS: C3-C4: Moderate endplate concavities and endplate reactive changes. Anterior disc bulge with endplate ridging. Posterior broad-based disc bulge abutting the cord in the midline. Moderate canal narrowing. Bilateral small uncinate spurs and bilateral mild neural foraminal narrowing. Facet joints are unremarkable. Spondylosis is progressed since the prior study. C4-C5: Disc desiccation and minimal disc space loss. Trace retrolisthesis. Posterior broad-based disc bulge almost abutting the cord. Cyst in the posterior left inferior C4 endplate. Bilateral uncinate spurs. Moderate canal narrowing. Bilateral moderate neural foraminal narrowing. Facet joints negative. No change since the prior study. C5-C6: Disc desiccation and moderate disc space loss in the midline into the left of midline with disc spur encroachment on the left neural foramen which is mildly stenotic. Mild to moderate narrowing of the right neural foramen. Left posterior disc osteophyte complex also narrowing the left ventral epidural space with no cord impingement. Possible abutment of the left C6 nerve. Facet joints are negative. Endplate changes and left neural foraminal stenosis are new since the prior study. C6-C7: Disc desiccation and disc space loss. Posterior broad-based bulge slightly more to the left of midline not abutting the cord. Bilateral uncinate spurs with narrowing of the neural foramen more right than left. Spur abutting the right C7 nerve in the foramen. Mild canal narrowing. Facets are unremarkable. Foraminal narrowing is stable since the prior study. Normal signal in the remaining discs with no bulging. Disc spaces preserved. Canal and neural foramina are patent. Facet joints are negative. Spinal alignment mild kyphosis at C2-C4. No cord compression or cord edema. Atlantoaxial joint arthrosis and minimal hypertrophy narrowing the ventral canal.. Base of the cerebellar tonsils is at the level of the foramen magnum. Paravertebral soft tissues small lymph nodes. Heterogeneous right thyroid lobe. No masses.. Vertebral bodies are not compressed at any level. Otherwise normal marrow signal in the remaining vertebral bodies and the posterior elements. IMPRESSION: 1. Multiple levels of the cervical spine spondylosis. This has progressed since the prior study. 2. C5-C6 spondylosis of the left of midline has progressed since the prior study with new borderline neural foraminal stenosis left. Electronically signed by: Richie Masterson MD 02/20/2019 7:59 AM [facility]
== END ==
LOC: MRI 13:48
PROVIDERS: ATTEND Psychiatry & Neurology Neurology
DX: M50.122 Cervical disc disorder at C5-C6 level with radiculopathy (principal); M51.16 Intervertebral disc disorders with radiculopathy, lumbar region; M51.17 Intervertebral disc disorders with radiculopathy, lumbosacral region; D18.00 Hemangioma unspecified site